=== PATIENT | female | born 2000 | race African-American/Black ===

== ENCOUNTER 2021-05-10 19:34 | Emergency (ER) | payer OTHER ==
[2021-05-10] MEDS ORDERED: Acetaminophen 500 MG TAB ONE (20:44)
[2021-05-10 21:54] LABS: SARS-CoV-2 NAA Rapid Test Not Detected (NotDetected)
== END 2021-05-10 22:11 | disposition home or self-care (01) ==
LOC: CSHERS 19:34
DX: O98.511 Other viral diseases complicating pregnancy, first trimester (principal); B34.9 Viral infection, unspecified; R13.10 Dysphagia, unspecified; Z20.822 Contact with and (suspected) exposure to COVID-19; Z3A.01 Less than 8 weeks gestation of pregnancy
CPT/HCPCS: 0240U; 87081; 87430; 99283

== ENCOUNTER 2021-06-10 20:14 | Emergency (ER) | payer OTHER | END 2021-06-10 20:52 | disposition home or self-care (01) | LOC: CSHERS 20:14 | DX: O99.511 Diseases of the respiratory system complicating pregnancy, first trimester (principal); J06.9 Acute upper respiratory infection, unspecified; Z3A.12 12 weeks gestation of pregnancy | CPT/HCPCS: 99283 ==

== ENCOUNTER 2021-10-09 18:22 | Day surgery (SDC) | payer OTHER ==
[2021-10-09 19:15] VITALS: BMI 26.7
[2021-10-09 20:20] LABS: Bilirubin Neg (Negative); Blood, Urine Negative (Negative); Clarity Clear (Clear); Glucose, Urine (Dipstick) Normal (Negative); Ketone, Urine Negative (Negative); Leukocyte Negative (Negative); Nitrite Negative (Negative); Protein, Urine (Dipstick) 15 mg/dl (Neg-Trace); Specific Gravity, Urine 1.015 (1.002-1.036)
[2021-10-09 20:28] LABS: Bacteria/HPF None Seen HPF (None Seen); RBC/HPF 0-3 HPF (0-3); Squamous Epithelial 0-3 HPF (0-3); WBC/HPF 0-3 HPF (0-3)
[2021-10-09] MEDS ORDERED: hydrALAZINE 20 MG/ML VIAL SLOW IVP PRN (20:36)
[2021-10-10 14:09] LABS: Chlamydia by PCR Not Detected (NotDetected); GC by PCR Not Detected (NotDetected)
== END 2021-10-09 20:58 | disposition home or self-care (01) ==
LOC: CSHLD/OP 18:22 → CSHERS 18:22 → EDSTATUS 18:27 → CSHLD/OP 20:58
PROVIDERS: ATTEND Obstetrics & Gynecology
DX: O23.593 Infection of other part of genital tract in pregnancy, third trimester (principal); O26.893 Other specified pregnancy related conditions, third trimester; R10.2 Pelvic and perineal pain; R30.0 Dysuria; M54.50 Low back pain, unspecified; Z3A.28 28 weeks gestation of pregnancy; Z79.899 Other long term (current) drug therapy; Z98.890 Other specified postprocedural states
CPT/HCPCS: 81001; 87480; 87491; 87510; 87529; 87591; 87660; 99285

== ENCOUNTER 2023-01-21 17:21 | Emergency (ER) | payer OTHER ==
[2023-01-21] MEDS ORDERED: Fluorescein Opthalmic Strip ONE (18:09)
[2023-01-21] MEDS ORDERED: Tetracaine 0.5% PF 4 ML BOT ONE (18:09)
== END 2023-01-21 18:49 | disposition home or self-care (01) ==
LOC: CSHERS 17:21
DX: H10.9 Unspecified conjunctivitis (principal); J06.9 Acute upper respiratory infection, unspecified
CPT/HCPCS: 99283

== ENCOUNTER 2024-01-23 00:16 | Emergency (ER) | payer OTHER ==
[2024-01-23] MEDS ORDERED: cefTRIAXone (ROCEPHIN) 500 MG VIAL ONE (00:40)
[2024-01-23] MEDS ORDERED: Sterile Water 10 ML ONE (00:41)
== END 2024-01-23 00:51 | disposition home or self-care (01) ==
LOC: CSHERS 00:16
DX: N76.0 Acute vaginitis (principal); B96.89 Other specified bacterial agents as the cause of diseases classified elsewhere; Z20.2 Contact with and (suspected) exposure to infections with a predominantly sexual mode of transmission
CPT/HCPCS: 96372; 99283; J0696